=== PATIENT | female | born 1945 | race Caucasian/White ===

== ENCOUNTER → 2016-03-29 | Day surgery (SDC) | payer OTHER ==
[~2016-03-29] VITALS: Ht 158.8 cm; Wt 60.0 kg
[~2016-03-29] MED LIST: ACETAMINOPHEN 500 MG TAB PO ONE; ACETAMINOPHEN 500 MG TAB PO PRN; ASPI81TA28 PO; ATEN-173 PO; CHOL1000 PO; CLBPO15 TOP; LEVO50TA6 PO; LORA-741 PO; OMEG10007 PO
[2016-03-29 12:27] VITALS: BP 133/72; PULSE 70; TEMP 36.7; O2SAT 97; Ht 158.8 cm; Wt 60.0 kg
--- NOTE | 2016-03-29 13:46 | Discharge Instructions ---
Discharge Instructions Procedure Procedure Date: Mar 29, 2016. Reason for visit: Abnormal Results Of Liver Function Studies. Discharge Discharge Date: Mar 29, 2016. Discharge Diagnosis: abnormal liver function test Instructions Activity Recommendations: 1 Day-May resume regular activity Return to School/Work: no limitations Recommended Home Diet: Resume Previous Diet Allergies Coded Allergies: Sulfamethoxazole w/Trimethoprim (Verified Allergy, Mild, Nausea, 03/29/16) Meperidine (Verified Adverse Reaction, Unknown, DECREASE BLOOD PRESSURE, ) Rosemary Oliva Recommendations: Call your doctor if: * Temperature above 101 degrees * Pain not relieved by pain medicine ordered * There is increased drainage or redness from any incision * You have any unanswered questions or concerns. Your Doctors Instructions noted above were prepared by provider Guanako Young. Patient Signature Section: Patient Instructions Signature Page Sonya Rubio Patient (or Guardian) Signature/Date: I have read and understand the instructions given to me by my caregivers. Caregiver/RN/Doctor Signature/Date: The above-named patient and/or guardian has received patient instructions on this date. + Original Patient Signature Page (only) stays with chart. Please make copy for patient.
[2016-03-29 13:52] VITALS: BP 123/72; PULSE 66; TEMP 36.7; O2SAT 98
[2016-03-29 14:08] VITALS: BP 121/64; PULSE 66; O2SAT 96
[2016-03-29 14:37] VITALS: BP 132/68; PULSE 61; O2SAT 98
--- NOTE | 2016-03-29 14:58 | DIAGNOSTIC IMAGING REPORT ---
ULTRASOUND-GUIDED HEPATIC CORE BIOPSY CLINICAL HISTORY: Abnormal liver function tests. Suspected autoimmune hepatitis. COMPARISON STUDY: Outside ultrasound dated 11/21/2015 FINDINGS: A timeout was performed. The risks of the procedure were explained the patient informed consent was obtained. The patient was prepped and draped in sterile fashion. The skin was anesthetized 1% lidocaine. Utilizing ultrasound guidance, two 18-gauge (2 cm) core biopsy samples were obtained from the right lobe of the liver. There were no immediate complications. The patient was sent to medical treatment unit for observation. IMPRESSION: 2 core samples were obtained from the right lobe of the liver utilizing an 18-gauge (2 cm throw) core biopsy needle. Electronically signed by: Guanako Young M.D. 03/29/2016 2:56 PM Dictated Date/Time: 03/29/2016 2:53 PM
[2016-03-29 15:08] VITALS: BP 121/68; PULSE 60; TEMP 36.7; O2SAT 97
[2016-03-29 15:42] VITALS: BP 128/69; PULSE 59; TEMP 36.7; O2SAT 96
== END | disposition home or self-care (01) ==
LOC: C.ACU 11:11 → EDSTATUS 12:00
PROVIDERS: ATTEND Internal Medicine Gastroenterology
DX: K76.6 Portal hypertension (principal); K76.89 Other specified diseases of liver